=== PATIENT | male | born 1980 | race Caucasian/White ===

== ENCOUNTER → 2019-06-04 | Outpatient (CLI) | payer OTHER ==
--- NOTE | 2019-06-05 04:54 | MR ---
EXAMINATION TYPE: MR cervical spine wo con DATE OF EXAM: 06/04/2019 COMPARISON: None HISTORY: Neck/rt shoulder pain, loss of strength x 5 mos TECHNIQUE: Multiplanar, multisequence images of the cervical spine were acquired. Cervical vertebra have normal alignment. Disc spaces are fairly normal. There is small posterior disc bulging at C5-6 C6-7. Cervical spinal cord has normal signal pattern. There is no edema. The brainst em is intact. There is no spinal stenosis. Spinal canal measures 8.7 mm at the C6-7 level which is th e narrowest point. I see no focal bone destruction. There is no cervical paraspinal mass. There is so me neural foraminal impingement on the left-sided C5-6 C6-7 due to uncovertebral spurring. This is op posite the symptoms which are the right shoulder. 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 Posterior disc bulging and uncovertebral sp urring in the midline and towards the left side at C5-6 and C6-7. There is mild left-sided neural for aminal impingement. No fracture. No spinal stenosis.
== END | disposition home or self-care (01) ==
LOC: RADMRIMAIN 17:49
PROVIDERS: ATTEND Physical Medicine & Rehabilitation
DX: M47.22 Other spondylosis with radiculopathy, cervical region (principal); M50.80 Other cervical disc disorders, unspecified cervical region; M79.12 Myalgia of auxiliary muscles, head and neck
CPT/HCPCS: 72141

== ENCOUNTER → 2022-11-23 | Outpatient (CLI) | payer OTHER ==
--- NOTE | 2022-11-23 15:44 | P.SLEEP ---
History of Present Illness DATE: 11/23/2022 CONSULTATION/NEW PATIENT EVALUATION HISTORY OF PRESENT ILLNESS/SLEEP-WAKE EVALUATION: 42-year-old gentleman had been evaluated in the sleep center for possible obstructive sleep apnea hypopnea syndrome. SLEEP SCHEDULE: Usually sleep schedule from 10 PM to 4 AM on working days and from 11 PM to 7 AM on weekend. FALLING ASLEEP: No problems with falling asleep, no TV in bedroom. DURING SLEEP: According to patient he has loud snoring, witnessed episodes of stop breathing during the sleep. Patient wakes up from sleep 3 times with 2 episodes of nocturia. Positive history of grinding teeth, dry mouth, sleep talking. No history of hypnogogical hallucinations, sleep paralysis, or cataplexy. DURING THE DAY/WAKE STATE: In the morning patient wake up tired, falling asleep during the day, has problems with concentration. Leeds sleepiness scale is 10, which indicates sleepiness. Patient may take up to 4 naps and rest periods during the day. PAST MEDICAL HISTORY: Sinuses problems, hyperlipidemia. PAST SURGICAL HISTORY: Cholecystectomy. MEDICATIONS: Cyclobenzaprine 10 mg as needed, ibuprofen 800 mg if needed. SOCIAL HISTORY: Positive for smoking up to 2.5 packs a day for about 20 years quit 8 years ago, alcohol consumption occasional. FAMILY HISTORY: Heart problems, stroke. REVIEW OF SYSTEMS: Loud snoring, multiple awakenings from sleep, sleepiness during the day. No fevers. No double vision. No recent chest pain. No shortness of breath. No abdominal pain. No bleeding episodes. No blood in urine. No seizure episodes. PHYSICAL EXAMINATION: GENERAL: A pleasant patient without any distress. VITAL SIGNS: BP 135/91 , HR 78 , RR 12 , weight 249 pounds, height 6 foot 0.75 inches, body mass index 33.1 . HEENT: PERRLA, EOMI. Evaluation of oropharynx showed tongue protrudes midline, low position of soft palate Mallampati 3. NECK: Supple. No JVD. Thyroid is not palpable. 18.5 inches in circumference. LUNGS: Clear to percussion and to auscultation. Good air exchange. No wheezing or rhonchi. HEART: S1, S2 regular. No murmurs, gallops or rubs. ABDOMEN: Soft and nontender. Bowel sounds are present. No organomegaly appreciated. EXTREMITIES: No clubbing or cyanosis. 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 Cranial nerves 2 to 7 intact. There is no fasciculation or atrophy noted. No focal deficits observed. ASSESSMENT: 1. Loud snoring, witnessed episodes of stop breathing during the sleep, low position of soft palate Mallampati 3, wide neck 18.5 inches in circumference, sleepiness Leeds Sleepiness Scale increased to 10. Obstructive sleep apnea- hypopnea syndrome. 2. Mild obesity falling body mass index 33.1. 3. Hyperlipidemia. 4. Sinuses problems. 5 status post cholecystectomy. PLAN: 1. Polysomnography for evaluation of patient's breathing during sleep. 2. CPAP/BiPAP titration if sleep study confirms obstructive sleep apnea- hypopnea syndrome. 3. Preferable position during sleep on the side. 4. No driving if patient feels any sleepiness. Patient is aware of civil and criminal liability for unsafe driving. 5. Sleep hygiene with regular sleep time for at least 7.5-8 hours. 6. Watching weight. Thank you very much for referring this patient for consultation. Sincerely, Ezra Jaffe MD, PhD, FAASM. Diplomat of [place], Sleep Medicine Board by [place] [employer] Rehabilitation Attendant of [facility] Past Medical History Past Medical History: GERD/Reflux Additional Past Medical History / Comment(s): 08/07/14 Pt admitted to floor s/p Lap maricruz fundlaplasty and lap hoang. Other HX: esophagitis, biliary hypokinesia, HIATAL HERNIA, NECK & BACK PAIN History of Any Multi-Drug Resistant Organisms: None Reported Past Surgical History: Cholecystectomy Additional Past Surgical History / Comment(s): hiatal hernia Past Anesthesia/Blood Transfusion Reactions: No Reported Reaction, Family History of Problems w/ Anesthesia Additional Past Anesthesia/Blood Transfusion Reaction / Comment(s): MOTHER-PONV. Pt tolereated todays surgery with general anesthesia without difficulty. Past Psychological History: No Psychological Hx Reported Additional Psychological History / Comment(s): Pt lives at home with and 5 children. He is independent. 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 Past Alcohol Use History: Occasional Past Drug Use History: None Reported - Past Family History Father Family Medical History: Unable to Obtain Additional Family Medical History / Comment(s): Pt does not know his father. Mother Additional Family Medical History / Comment(s): Mother either has liver disease or kidney disease-pt is not sure. Medications and Allergies Home Medications Medication Instructions Recorded Confirmed Type Triamcinolone 0.1% Cream [Kenalog 1 applicatio TOPICAL BID #30 tube 05/06/15 Rx 0.1% Cream] methylPREDNISolone [Medrol] 1 pack PO DIRECTED #1 tab.ds.pk 05/06/15 Rx Allergies Allergy/AdvReac Type Severity Reaction Status Date / Time Penicillins Allergy Anaphylaxis Verified 05/06/15 21:25 Sleep Note - Sleep Note Sleep Note: Temperature: Pulse Rate: Respiratory Rate: Blood Pressure: SpO2: Height: Weight: BMI: Neck Circumference:
== END ==
LOC: SLEEP 15:16
PROVIDERS: ATTEND Internal Medicine
DX: G47.33 Obstructive sleep apnea (adult) (pediatric) (principal); E66.9 Obesity, unspecified; Z68.33 Body mass index [BMI] 33.0-33.9, adult; E78.5 Hyperlipidemia, unspecified; J34.2 Deviated nasal septum; Z98.890 Other specified postprocedural states; K21.9 Gastro-esophageal reflux disease without esophagitis; Z88.0 Allergy status to penicillin; Z87.891 Personal history of nicotine dependence
CPT/HCPCS: 99211

== ENCOUNTER 2023-04-19 19:32 | Outpatient (CLI) | payer OTHER | END 2023-04-20 05:15 | disposition home or self-care (01) | LOC: 3 N SLEEP 19:32 | PROVIDERS: ATTEND Internal Medicine | DX: G47.33 Obstructive sleep apnea (adult) (pediatric) (principal); Z88.0 Allergy status to penicillin; Z87.891 Personal history of nicotine dependence | CPT/HCPCS: 95811 ==

== ENCOUNTER → 2023-07-02 | Outpatient (CLI) | payer OTHER ==
--- NOTE | 2023-07-02 16:45 | P.PN ---
Subjective DATE: 07/02/2023 FOLLOW UP VISIT. Patient with obstructive sleep apnea hypopnea syndrome return to sleep center for follow-up visit. Recently patient had sleep study which documented obstructive sleep apnea hypopnea syndrome. Patient was initiated on PAP therapy and today is first visit after treatment was started. Patient was able to use PAP equipment every night for the whole night. Patient feels significantly better after starting to use CPAP equipment. The patient does not have significant problems with the mask, PAP pressure and humidification. Sulphur sleepiness scale is 8, which is normal. I checked information from PAP unit. PAP unit pressure 7-14, average 13.9 cm H2O. Usage is 100% and 87 % for more then 4 hours, average 6.3 hours per night. Leak is perfect 2.8 l/m. Apnea Hypopnea Index is slightly increased to 11.4. MEDICATIONS:1. Cyclobenzaprine 10 mg as needed 2. Ibuprofen 800 mg as needed During physical exam: GENERAL: A pleasant patient without any distress. VITAL SIGNS: BP 130/86, HR 78, RR 16 , weight 239, temperature 97.8, oxygen saturation at room air 98% . HEENT: PERRLA, EOMI.low position of soft palate, Mallapati 3 . NECK: Supple. No JVD. LUNGS: Clear to percussion and to auscultation. Good air exchange. No wheezing or rhonchi. HEART: S1, S2 regular. ABDOMEN: Soft and nontender.[] EXTREMITIES: No clubbing or cyanosis. 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 No focal deficit. I increased pressure in CPAP unit to the range 7-16 centimeters of water. Impressions: 1. Obstructive sleep apnea-hypopnea syndrome and extremely severe range. Apnea hypopnea index by results of home sleep apnea test 78.2.. Patient demonstrated great compliance with treatment, benefiting from treatment. 2. Hyperlipidemia. 3. Sinuses problems. 4. Mild obesity. 5. Status post cholecystectomy. Plan: 1. Continue using PAP equipment every night for the whole night. 2. To change air filter at least 1-2 times per month. 3. PAP unit should stay lower then position of the head. 4. Advised patient to remove all remaining water from humidifier canister daily and make it dry after each usage. Refill canister with fresh distilled water before each usage. 5. Sleep hygiene with regular time in bed for at least 8 hours. 6. Precautions related to driving. No driving if feel any sleepiness. 7. I will maintain prescription for PAP supplies including mask, tube, filters. 8. Follow up visit in 6 months or earlier if patient has any problems. 9. Watching weight. Thank you very much for allowing me to participate in the management of your patient. Ezra Jaffe MD, PhD, FAASM. Diplomat of [place] [employer], Sleep Medicine Board by [employer] Tool Repairer [facility] [place]
== END ==
LOC: 3 N SLEEP 15:45
PROVIDERS: ATTEND Internal Medicine
DX: G47.33 Obstructive sleep apnea (adult) (pediatric) (principal); E78.5 Hyperlipidemia, unspecified; E66.9 Obesity, unspecified; J32.9 Chronic sinusitis, unspecified; Z90.49 Acquired absence of other specified parts of digestive tract; Z99.89 Dependence on other enabling machines and devices; Z88.0 Allergy status to penicillin; Z87.891 Personal history of nicotine dependence
CPT/HCPCS: 99212

== ENCOUNTER → 2024-03-05 | Outpatient (CLI) | payer OTHER | LOC: 3 N SLEEP 16:00 | PROVIDERS: ATTEND Internal Medicine | CPT/HCPCS: 99212 ==